=== PATIENT | male | born 1950 | race Caucasian/White ===

== ENCOUNTER 2023-09-26 14:54 | Inpatient (IN) | payer MEDICARE, OTHER ==
[~2023-09-26] VITALS: Ht 167.6 cm; Wt 57.2 kg
[2023-09-26] MEDS ORDERED: MAG HYDROX/AL HYDROX/SIMETH 30 ML UDC PO PRN (18:00)
[2023-09-26] MEDS: BLOOD SUGAR DIAGNOSTIC 1 EACH STRIP IN ONE (18:55)
[2023-09-26 19:00] VITALS: BP 101/61; TEMP 97.8; O2SAT 97
[2023-09-26] MEDS: clonazePAM 0.5 MG TABLET PO PRN (20:03)
[2023-09-26] MEDS: TEMAZEPAM 7.5 MG CAPSULE PO PRN (22:08)
[2023-09-26 22:31] VITALS: BP 101/61; TEMP 97.8; O2SAT 97
[2023-09-27] MEDS: MAGNESIUM HYDROXIDE 30 ML UDC PO PRN (01:50)
[2023-09-27] MEDS ORDERED: Z GUARD REMEDY 4 OZ OINT TP PRN (03:00)
[2023-09-27 07:39] LABS: CREATININE 0.6 mg/dL (0.6-1.3)
[2023-09-27 07:43] LABS: ALBUMIN 2.7 g/dL (3.4-5.0); BILIRUBIN,TOTAL 0.7 mg/dL (0.2-1.0); CALCIUM, SERUM 9.2 mg/dL (8.5-10.1); CREATININE 0.6 mg/dL (0.6-1.3); POTASSIUM 3.8 mmol/L (3.5-5.1); TOTAL PROTEIN, SERUM 6.4 g/dL (6.4-8.2)
[2023-09-27 08:00] VITALS: BP 127/65; TEMP 97.8; O2SAT 98
[2023-09-27 08:36] LABS: CHOLESTEROL 111 mg/dL (<200); HDL CHOLESTEROL 38 mg/dL (40-60); LDL 48 mg/dL (0-99); TRIGLYCERIDES 90 mg/dL (30-150)
[2023-09-27] MEDS ORDERED: TEMA30CA PO (09:21)
[2023-09-27] MEDS ORDERED: DIVA500T2 PO (09:21)
[2023-09-27] MEDS ORDERED: HYDR-3980 PO (09:21)
[2023-09-27] MEDS ORDERED: MIRT-73 PO (09:21)
[2023-09-27] MEDS ORDERED: SERT100T PO (09:21)
[2023-09-27] MEDS ORDERED: ACET1TAB23 PO (09:21)
[2023-09-27] MEDS ORDERED: OLAN20TA3 PO (09:21)
[2023-09-27] MEDS ORDERED: CARB1TAB21 PO (09:21)
[2023-09-27] MEDS ORDERED: DIVA-78 PO (09:21)
[2023-09-27] MEDS ORDERED: CLON0.5T4 PO (09:21)
[2023-09-27] MEDS ORDERED: MIRTAZAPINE 15 MG TABLET PO SCH (11:00)
[2023-09-27] MEDS ORDERED: risperiDONE 1 MG TABLET PO SCH (11:00)
[2023-09-27] MEDS: OLANZAPINE 5 MG TABLET PO SCH (12:23)
[2023-09-27 16:00] VITALS: BP 109/56; TEMP 97.9; O2SAT 96
[2023-09-27] MEDS: CARBIDOPA/LEVODOPA 25/100 MG 1 UDTAB PO SCH (16:56)
[2023-09-27 20:30] VITALS: BP 114/52; TEMP 98.1; O2SAT 97
[2023-09-27] MEDS: OLANZAPINE 10 MG TABLET PO SCH (21:23)
[2023-09-27] MEDS: DIVALPROEX SODIUM 500 MG TABLET.DR PO SCH (21:23)
[2023-09-28 08:00] VITALS: BP 111/59; TEMP 98.4; O2SAT 99
[2023-09-28] MEDS: DIVALPROEX SODIUM 500 MG TABLET.DR PO SCH (08:04)
[2023-09-28] MEDS: ACETAMINOPHEN W/ CODEINE#3 1 EA TABLET PO SCH (08:11)
[2023-09-28 16:00] VITALS: BP 109/62; TEMP 97.9; O2SAT 98
[2023-09-28 20:00] VITALS: BP 108/93; TEMP 98.5; O2SAT 98
[2023-09-28] MEDS: OLANZAPINE 10 MG TABLET PO SCH (21:08)
[2023-09-29 08:00] VITALS: BP 100/60; TEMP 98; O2SAT 99
[2023-09-29] MEDS: ENSURE ENLIVE 237 ML LIQUID (VANILLA) PO SCH (09:41)
[2023-09-29] MEDS: FIXODENT DENTURE ADHESIVE CREAM TUBE MM PRN (12:13)
[2023-09-29 16:00] VITALS: BP 100/60; TEMP 98.6; O2SAT 100
[2023-09-29 20:00] VITALS: BP 108/64; TEMP 98.1; O2SAT 96
[2023-09-30 08:00] VITALS: BP 136/62; TEMP 97.7; O2SAT 97
[2023-09-30] MEDS: POLYETHYLENE GLYCOL 3350 17 GM POWD.PACK PO ONE (09:32)
[2023-09-30 16:00] VITALS: BP 102/64; TEMP 98.7; O2SAT 97
[2023-09-30 20:21] VITALS: BP 99/50; TEMP 98.1; O2SAT 100
[2023-09-30 21:30] VITALS: BP 113/69; TEMP 97.7; O2SAT 98
[2023-10-01 08:00] VITALS: BP_SYST 100; BP_SYST 104; BP_DIAS 60; BP_DIAS 64; TEMP 98; O2SAT 94; O2SAT 98
[2023-10-01] MEDS: DOCUSATE SODIUM 100 MG CAPSULE PO SCH (10:11)
[2023-10-01 21:03] VITALS: BP 136/66; TEMP 98; O2SAT 98
[2023-10-01] MEDS: ACETAMINOPHEN 325 MG TABLET PO PRN (21:10)
[2023-10-01] MEDS: SENNOSIDES 8.6 MG TABLET PO SCH (21:10)
[2023-10-02 08:00] VITALS: BP 122/53; TEMP 98.6; O2SAT 100
[2023-10-02] MEDS: ENSURE ENLIVE CHOC 237 ML CAN PO SCH ×2 (08:02→12:05)
[2023-10-02 16:00] VITALS: BP 107/58; TEMP 97.7; O2SAT 98
[2023-10-02 20:51] VITALS: BP 110/50; TEMP 98.1; O2SAT 100
[2023-10-03 08:00] VITALS: BP 130/60; TEMP 98.1; O2SAT 100
== END 2023-10-03 11:00 | disposition home or self-care (01) | DRG 885 ==
LOC: GPS 17:18
PROVIDERS: ADMIT Psychiatry & Neurology Psychiatry; ATTEND Internal Medicine
DX: F29 Unspecified psychosis not due to a substance or known physiological condition (principal); F20.9 Schizophrenia, unspecified; G20.A1 Parkinson's disease without dyskinesia, without mention of fluctuations; R62.7 Adult failure to thrive; Z79.899 Other long term (current) drug therapy; Z68.20 Body mass index [BMI] 20.0-20.9, adult; R74.01 Elevation of levels of liver transaminase levels; R42 Dizziness and giddiness; G40.909 Epilepsy, unspecified, not intractable, without status epilepticus; K59.00 Constipation, unspecified; F02.80 Dementia in other diseases classified elsewhere, unspecified severity, without behavioral disturbance, psychotic disturbance, mood disturbance, and anxiety
CPT/HCPCS: 36415; 80053-TC; 80061-TC; 82565-TC; 82962-TC; 87081-TC; 97110-TC; 97116-TC; 97530-TC